=== PATIENT | female | born 1950 | race Caucasian/White ===

== ENCOUNTER 2020-11-28 16:27 | Emergency (ER) | payer MEDICARE, OTHER ==
[~2020-11-28 16:27] MED LIST: ACETAMINOPHEN325 MG PO; ASPIR 8181 MG PO; ATARAX25 MG PO; ATENOLOL25 MG PO; CALCIUM 600 +1 EA12 PO; CELEXA10 MG PO; ESTRACE1 MG PO; FEOSOL325 M1 PO; LOVAZA1 GM PO; MAG-OXIDE 400M400 MG PO; MAGNESIUM400 MG PO; MOBIC7.5 MG PO; NEURONTIN600 MG PO; OXY-IR 5MG5 MG PO; OXYCODONE HCL15 MG PO; OXYCODONE-ACET1 EAC1 PO; TRILEPTAL150 MG PO; VITAMIN B-121000 MC1 PO; VOLTAREN **OUT75 MG PO; XARELTO10 MG PO
[2020-11-28 17:46] LABS: BASOPHIL 0.2 % (0-2); EOSINOPHIL 0 % (0-7); HCT 33.6 % (37.0-47.0); HGB 11.5 g/dl (12.5-16.0); LYMPHOCYTE 6.9 % (15-48); MCHC 34.2 g/dL (32.0-36.0); MCV 93.6 fL (78.0-100.0); MONOCYTE 8.1 % (0-12); MPV 8.8 fL (6.0-9.5); NEUTROPHIL 83.7 % (41-80); NRBC 0; PLT 252 K/uL (150-400); RBC 3.59 M/uL (4.20-5.40); RDW 14.2 % (11.5-14.0)
[2020-11-28 18:09] LABS: ALBUMIN 3.8 g/dL (3.4-5.0); BILIRUBIN - TOTAL 0.3 mg/dL (0.2-1.0); BUN/CREAT RATIO (CALC) 40.6 RATIO; CREATININE 0.64 mg/dL (0.51-0.95); GLOBULIN (CALCULATION) 3.2 g/dL; POTASSIUM 4.4 mmol/L (3.5-5.1)
[2020-11-28] MEDS ORDERED: NAPROXEN500 MG PO (18:52)
== END 2020-11-28 19:17 | disposition home or self-care (01) ==
LOC: FER 16:27
PROVIDERS: Emergency Medicine
DX: R07.89 Other chest pain (principal); I10 Essential (primary) hypertension; Z88.2 Allergy status to sulfonamides; Z88.5 Allergy status to narcotic agent
CPT/HCPCS: 36415; 71046; 80053; 83690; 84484; 85025